=== PATIENT | female | born 1990 | race Hispanic/Latino ===

== ENCOUNTER 2016-12-30 16:22 | Observation (INO) | payer BC ==
[2016-12-30] MEDS ORDERED: Sodium Chloride 0.9% 1,000 ML IV STA (16:50)
--- NOTE | 2016-12-30 16:52 | ED PDOC ---
HPI: Abdomen Time Seen by Provider: 12/30/16 16:39 Chief Complaint (Nursing): Abdominal Pain Chief Complaint (Provider): lower abdominal pain History Per: Patient History/Exam Limitations: no limitations Onset/Duration Of Symptoms: Mins (prior to arrival ) Outside of [place] travel?: No Additional Complaint(s): Arabella Page is a 26 year old female. with a previous medical history of kidney stones, who presents to the ED with complaints of lower pelvic cramping associated with one episode of diarrhea, nausea and urgency to urinate which suddenly began prior to arrival. Patient denies any vomiting, fever, chills, chest pain, leg pain, shortness of breath, back pain or trauma. PMD: none provided Abnormal Vaginal Bleeding: No Past Medical History Reviewed: Historical Data, Nursing Documentation, Vital Signs Vital Signs: Last Vital Signs Temp 97.8 F 12/30/16 16:36 Pulse 78 12/30/16 17:43 Resp 19 12/30/16 17:43 BP 146/86 12/30/16 17:43 Pulse Ox 98 12/30/16 17:43 - Medical History PMH: Kidney Stones - Family History Family History: States: Unknown Family Hx - Allergies Allergies/Adverse Reactions: Allergies Allergy/AdvReac Type Severity Reaction Status Date / Time No Known Allergies Allergy Verified 12/30/16 16:36 Review of Systems ROS Statement: Except As Marked, All Systems Reviewed And Found Negative Constitutional: Negative for: Fever, Chills Cardiovascular: Negative for: Chest Pain Respiratory: Negative for: Shortness of Breath Gastrointestinal: Positive for: Nausea, Diarrhea. Negative for: Vomiting Genitourinary Female: Positive for: Frequency, Pelvic Pain Musculoskeletal: Negative for: Back Pain, Leg Pain Physical Exam - Reviewed Nursing Documentation Reviewed: Yes Vital Signs Reviewed: Yes - Physical Exam Appears: Positive for: Non-toxic, No Acute Distress Head Exam: Positive for: ATRAUMATIC, NORMAL INSPECTION, NORMOCEPHALIC Skin: Positive for: Normal Color, Warm, Dry Eye Exam: Positive for: Normal appearance ENT: Positive for: Normal ENT Inspection Neck: Positive for: Normal, Painless ROM Cardiovascular/Chest: Positive for: Regular Rate, Rhythm Respiratory: Positive for: Normal Breath Sounds Gastrointestinal/Abdominal: Positive for: Bowel Sounds, Soft, Tenderness ( across lower pelvic ). Negative for: Distended, Guarding, Rebound Back: Positive for: Normal Inspection. Negative for: L CVA Tenderness, R CVA Tenderness, Vertebral Tenderness Extremity: Positive for: Normal ROM. Negative for: Pedal Edema, Calf Tenderness Neurologic/Psych: Positive for: Alert, Oriented - Laboratory Results Result Diagrams: 12/30/16 17:18 12/30/16 17:18 Interpretation Of Abn Labs: no acute - ECG O2 Sat by Pulse Oximetry: 100 (RA) Pulse Ox Interpretation: Normal Medical Decision Making Medical Decision Making: Initial Impression: abdominal pain Initial Plan: * labs * urine * urine dipstick * IV NS 1,000 ml at 1,000 ml/hr * toradol 15 mg IV * ED obs * US pelvis/transvag * reevaluation Scribe Attestation: Documented by Fe Huang, acting as a scribe for Srinivasan Skinner MD. Provider Scribe Attestation: All medical record entries made by the Scribe were at my direction and personally dictated by me. I have reviewed the chart and agree that the record accurately reflects my personal performance of the history, physical exam, medical decision making, and the department course for this patient. I have also personally directed, reviewed, and agree with the discharge instructions and disposition. ED OBSERVATION Discharge: Yes Date of observation admission: 12/30/16 Time of observation admission: 16:51 - Observation admission statement Patient is being placed in observation because:: symptoms of abdominal pain and ED workup - Goals of Observation Goals of observation are:: alleviation of symptoms and results of ED workup - Progress Note Progress Note: 12/30/16 22:04 Stable. AAOx3. Pain free. Tolerated PO. FU outpt. Disposition - Clinical Impression Clinical Impression: Pelvic cramping, Hemorrhagic cyst - Patient ED Disposition Is Patient to be Admitted: No Counseled Patient/Family Regarding: Studies Performed, Diagnosis, Need For Followup, Rx Given - Disposition Disposition: Routine/Home Disposition Time: 22:05 Condition: STABLE
[2016-12-30 17:23] LABS: BASO # 0.1 K/uL (0.0-0.2); BASO % 1.2 % (0.0-2.0); EOS # 0.1 K/uL (0.0-0.7); EOS % 1.3 % (0.0-4.0); HEMOGLOBIN 14.5 g/dL (12.0-16.0); LYMPH # 2.2 K/uL (1.0-4.3); LYMPH % 33.3 % (20.0-40.0); MEAN CELL VOLUME 92.4 fl (81.0-99.0); MEAN CORPUSCULAR HEMOGLOBIN 31.9 pg (27.0-31.0); MEAN CORPUSCULAR HGB CONC 34.5 g/dL (33.0-37.0); MEAN PLATELET VOLUME 7.6 fl (7.2-11.7); MONO # 0.4 K/uL (0.0-0.8); MONO % 6.6 % (0.0-10.0); NEUT # 3.8 K/uL (1.8-7.0); NEUT % 57.6 % (50.0-75.0); RBC 4.54 Mil/uL (3.80-5.20); WHITE BLOOD COUNT 6.5 K/uL (4.8-10.8)
[2016-12-30 17:37] LABS: ALB/GLOB RATIO 1.3 (1.0-2.1); ALBUMIN 4.4 g/dL (3.5-5.0); ALT/SGPT 39 U/L (9-52); AST/SGOT 24 U/L (14-36); BLOOD UREA NITROGEN 10 mg/dl (7-17); CALCIUM 9.9 mg/dL (8.4-10.2); GFR AFRICAN-AMERICAN > 60; GFR NON-AFRICAN AMERICAN > 60
--- NOTE | 2016-12-31 08:20 | US ---
HISTORY: pelvic pain COMPARISON: None available. TECHNIQUE: Real-time transabdominal pelvic ultrasound was performed. In addition a transvaginal pelvic ultrasound was necessary to better depict pelvic anatomy. FINDINGS: Examination limited by bowel gas. UTERUS: Measures 6.9 x 5.2 x 3.8 cm. Anteverted. ENDOMETRIUM: Measures 1.0 cm in diameter. CERVIX: Nabothian cyst. RIGHT OVARY: Measures 4.4 x 2.8 x 2.3 cm. 2.7 x 1.7 x 1.6 cm complex cyst. Blood flow is demonstrated the right ovary. LEFT OVARY: Measures 2.7 x 2.7 x 1.4 cm. Blood flow is demonstrated to the left ovary. FREE FLUID: Small pelvic free fluid. OTHER FINDINGS: None. IMPRESSION: Examination limited by bowel gas. 2.7 cm complex right ovarian cyst, possibly hemorrhagic cyst. Recommend 6 week ultrasound to assess for resolution. Small pelvic free fluid. Preliminary impression was provided by virtual radiologic.
[2016-12-31 11:51] VITALS: BP 146/86; PULSE 78; RESP 19; TEMP 97.8; O2SAT 100
== END 2016-12-30 20:05 | disposition home or self-care (01) ==
LOC: H.ER 16:22 → H.EROBSV 16:51
PROVIDERS: ADMIT Emergency Medicine; ATTEND Emergency Medicine
DX: N83.201 Unspecified ovarian cyst, right side (principal); R10.2 Pelvic and perineal pain; Z87.442 Personal history of urinary calculi
CPT/HCPCS: 76830; 76856; 80053; 81025; 85025; 96374; 99282; G0378; J1885; J7040